=== PATIENT | male | born 1940 | race American Indian/Alaskan Native ===

== ENCOUNTER 2017-05-12 08:25 | Day surgery (SDC) | payer MEDICARE, MEDICAID ==
[~2017-05-12 08:25] MED LIST: Cataract Ophth Solution EYELF ONE; Lidocaine 4% 5 ML Amp EYELF ONE; Moxifloxacin 0.5% Ophth Soln 3 ML Bottle EYELF ONE; Sodium Chloride 0.9% 10 ML Syringe FLUSH PRN
[2017-05-12] MEDS ORDERED: Midazolam 1 MG/ML 2 ML SDV IV ONE (08:26)
[2017-05-12] MEDS ORDERED: Povidone-Iodine 5% Sterile Ophth Soln 30 ML Bottle EYELF ONE (11:18)
[2017-05-12] MEDS ORDERED: Lidocaine 1% 30 ML SDV ONE (11:18)
[2017-05-12] MEDS ORDERED: EPINEPHrine 1 MG/ML SDV ONE (11:18)
[2017-05-12] MEDS ORDERED: prednisoLONE Acetate 1% Ophth Susp 5 ML Bottle EYELF ONE (11:18)
[2017-05-12] MEDS ORDERED: Balanced Salt Solution Ophth Irrig 500 ML Bottle IOCULAR ONE (11:18)
[2017-05-12] MEDS ORDERED: Moxifloxacin 0.5% Ophth Soln 3 ML Bottle EYELF ONE (11:19)
[2017-05-12] MEDS ORDERED: Lidocaine 4% 5 ML Amp EYELF ONE (11:19)
--- NOTE | 2017-05-12 11:41 | PCM.OPNOTE ---
- General Post-Op/Procedure Note Date of Surgery/Procedure: 05/12/17 Operative Procedure(s): Cataract extraction with lens implant left eye Findings: As above Pre Op Diagnosis: Cataract left eye Post-Op Diagnosis: Same Anesthesia Technique: MAC Primary Surgeon: Fahad Mireles Anesthesia Provider: Sagar Pathology: None EBL in mLs: 0 Complications: None Condition: Good Free Text/Narrative:: PROCEDURE: After the risks and benefits of the procedure were explained informed consent was obtained from the patient and the patient was taken to the operating room. The patient was given topical Lidocaine 4% drops in the left eye. The patient was then prepped and draped in the sterile [facility] fashion. A wire lid speculum was placed in the left eye. A clear cornea temporal approach was used. A 7515 pilot station blade was used to make a paracentesis site around 5:00. Preservative-free Lidocaine 1% was injected intracamerally. Viscoelastic was placed in the anterior chamber. A 2.65 mm keratome blade was used to make a clear corneal incision around 3:00. A cystotome needle and Utrata forceps were used to perform continuous curvilinear capsulorhexis. Balanced Salt Solution was used to perform hydrodissection and hydrodelineation. The lens nucleus was removed using the divide and conquer phacoemulsification technique. Cumulative dissipated energy was 11.65. Remaining cortex was removed using irrigation- aspiration. Viscoelastic was placed in the capsular bag. PCBOO 23.5 diopter lens was then placed in the capsular bag. Remaining viscoelastic was removed using irrigation-aspiration. The lens was well centered in the capsular bag. The paracentesis and corneal incision were found to be water-tight. The patient was given topical Prednisolone and Vigamox drops. The speculum was removed and a shield was placed over the left eye. The patient was taken to recovery in stable condition. I certify that I was present for and performed the entire operative procedure. Fahad Mireles M.D.
== END 2017-05-12 12:30 | disposition home or self-care (01) ==
LOC: DL.SDS 08:25
PROVIDERS: ATTEND Ophthalmology
DX: H25.12 Age-related nuclear cataract, left eye (principal); K21.9 Gastro-esophageal reflux disease without esophagitis; N40.0 Benign prostatic hyperplasia without lower urinary tract symptoms; E78.5 Hyperlipidemia, unspecified; Z98.890 Other specified postprocedural states; Z87.891 Personal history of nicotine dependence; Z79.899 Other long term (current) drug therapy; Z79.82 Long term (current) use of aspirin; Z91.09 Other allergy status, other than to drugs and biological substances
CPT/HCPCS: 00142; 66984; A9270; J0171; J2250; J7050; V2632

== ENCOUNTER 2017-12-21 17:21 | Emergency (ER) | payer MEDICARE, MEDICAID ==
--- NOTE | 2017-12-21 18:13 | EDM.PDOC ---
ED HPI GENERAL MEDICAL PROBLEM - General Chief Complaint: Gastrointestinal Problem Stated Complaint: AMBULANCE Time Seen by Provider: 12/21/17 17:55 Source of Information: Reports: Family History Limitations: Reports: Other (The patient does not respond (all questions answered by )) - History of Present Illness INITIAL COMMENTS - FREE TEXT/NARRATIVE: This 77 yo male patient was brought to the ED by [facility] due to nausea, vomiting, diarrhea, hallucinations and generalized weakness. The patient's reports that the patient has a history of liver cancer. Over the past 3 days, the patient has not been eating or drinking well. Today, the patient started to have diarrhea. The patient is supposed to start chemo tomorrow in [place]. The patient is currently under the care of Dr. Godinez and Dr. Moser. The patient's reports that the patient has a history of liver cancer, hypertension, and high cholesterol. Onset Date: 12/18/17 Duration: Constant, Getting Worse Location: Reports: Generalized Quality: Reports: Other Severity: Severe Improves with: Reports: None Worsens with: Reports: None Associated Symptoms: Reports: Nausea/Vomiting, Weakness, Other (diarrhea ) - Related Data Allergies Allergy/AdvReac Type Severity Reaction Status Date / Time ENVIRONMENTAL Allergy Rash Uncoded 12/21/17 17:29 Home Meds: Home Meds Amitriptyline [Elavil] 25 mg PO BEDTIME 05/11/17 [History] Aspirin 1 tab PO DAILY 05/11/17 [History] Finasteride [Proscar] 5 mg PO DAILY 05/11/17 [History] Ibuprofen 800 mg PO TID 05/11/17 [History] Levothyroxine [Synthroid] 50 mcg PO DAILY 05/11/17 [History] Lovastatin 40 mg PO BEDTIME 05/11/17 [History] Metoclopramide [Reglan] 10 mg PO DAILY 05/11/17 [History] Nepafenac [Nevanac] 1 drop EYELF DAILY 05/11/17 [History] Ofloxacin [Ocuflox] 1 drop EYELF DAILY 05/11/17 [History] Omeprazole 40 mg PO DAILY 05/11/17 [History] Propranolol [Inderal] 40 mg PO DAILY 05/11/17 [History] Ranitidine [Zantac] 150 mg PO BID 05/11/17 [History] Tamsulosin [Flomax] 0.4 mg PO BEDTIME 05/11/17 [History] Verapamil [Calan SR] 240 mg PO DAILY 05/11/17 [History] prednisoLONE Acetate [Pred Forte 1% Ophth Susp] 1 drop EYELF DAILY 05/11/17 [ History] Past Medical History HEENT History: Reports: Cataract Other Cardiovascular History: DYSLIPIDEMIA Gastrointestinal History: Reports: GERD Other Gastrointestinal History: liver CA Genitourinary History: Reports: BPH Musculoskeletal History: Reports: Arthritis Other Neuro History: ESSENTIAL TREMOR Endocrine/Metabolic History: Reports: Hyperthyroidism Oncologic (Cancer) History: Reports: Liver Social & Family History - Tobacco Use Smoking Status *Q: Never Smoker Second Hand Smoke Exposure: No - Caffeine Use Caffeine Use: Reports: Coffee Caffeine Use Comment: 12OZ - Recreational Drug Use Recreational Drug Use: No ED ROS GENERAL - Review of Systems Review Of Systems: ROS reveals no pertinent complaints other than HPI. ED EXAM, GENERAL - Physical Exam Exam: See Below Exam Limited By: No Limitations General Appearance: Alert, Lethargic, Severe Distress, Thin Eye Exam: Bilateral Eye: EOMI, Normal Inspection, PERRL Ears: Normal External Exam, Normal Canal, Hearing Grossly Normal, Normal TMs Nose: Normal Inspection, Normal Mucosa, No Blood Throat/Mouth: Other (The patient's oral cavity is dry with black on his lips and tongue. ) Head: Atraumatic, Normocephalic Neck: Normal Inspection, Supple, Non-Tender, Full Range of Motion Respiratory/Chest: No Respiratory Distress, Lungs Clear, Normal Breath Sounds, No Accessory Muscle Use, Chest Non-Tender Cardiovascular: Normal Peripheral Pulses, Regular Rate, Rhythm, No Edema, No Gallop, No JVD, No Murmur, No Rub GI/Abdominal: Normal Bowel Sounds, Soft, Non-Tender, No Organomegaly, No Distention, No Abnormal Bruit, No Mass (Male) Exam: Deferred Rectal (Males) Exam: Deferred Back Exam: Normal Inspection, Full Range of Motion, NT Extremities: Normal Inspection, Normal Range of Motion, Non-Tender, Normal Capillary Refill, No Pedal Edema Neurological: Alert Psychiatric: Normal Affect, Normal Mood Skin Exam: Warm, Dry, Intact, Normal Color, No Rash Lymphatic: No Adenopathy Course - Vital Signs Last Recorded V/S: Last Vital Signs Temp 36.1 C 12/21/17 17:21 Pulse 64 12/21/17 17:21 Resp 18 12/21/17 17:21 BP 61/32 L 12/21/17 17:21 Pulse Ox 99 12/21/17 17:21 - Orders/Labs/Meds Orders: Active Orders 24 hr Category Date Time Status CULTURE BLOOD [BC] Stat Lab 12/21/17 17:53 Received CULTURE BLOOD [BC] Stat Lab 12/21/17 18:20 Results UA W/MICROSCOPIC [URIN] Stat Lab 12/21/17 17:40 Ordered Norepinephrine 4 MG in D5W @ 2 MCG/MIN(250ml) Med 12/21/17 19:15 Ordered Norepinephrine [Levophed] 4 mg Dextrose 5% in Water 246 ml IV TITRATE Sodium Chloride 0.9% [Normal Saline] 1,000 ml Med 12/21/17 18:18 Active IV .BOLUS Blood Culture x2 Reflex Set [OM.PC] Stat Oth 12/21/17 17:40 Ordered Medication Orders Sodium Chloride (Normal Saline) 1,000 mls @ 999 mls/hr IV .BOLUS ONE Stop: 12/21/17 19:18 Last Admin: 12/21/17 18:53 Dose: 999 mls/hr Norepinephrine Bitartrate 4 mg (/ Dextrose/Water) 250 mls @ 7.5 mls/hr IV TITRATE JUAN R; Protocol Labs: Laboratory Tests 12/21/17 12/21/17 12/21/17 Range/Units 17:53 17:53 17:53 WBC 9.1 (5.0-10.0) 10^3/uL RBC 3.28 L (4.6-6.2) 10^6/uL Hgb 9.8 L (14.0-18.0) g/dL Hct 31.0 L (40.0-54.0) % MCV 94.5 (80-100) fL MCH 29.9 (27.0-34.0) pg MCHC 31.6 L (33.0-35.0) g/dL Plt Count 213 (150-450) 10^3/uL Neut % (Auto) 78.3 H (42.2-75.2) % Lymph % (Auto) 13.4 L (20.5-50.1) % [place] % (Auto) 7.3 (2-8) % Eos % (Auto) 0.7 L (1.0-3.0) % Baso % (Auto) 0.3 (0.0-1.0) % Sodium 147 H (135-145) mmol/L Potassium 4.4 (3.6-5.0) mmol/L Chloride 115 H (101-111) mmol/L Carbon Dioxide 13.0 L (21.0-31.0) mmol/L Anion Gap 23.4 BUN 81 H (7-18) mg/dL Creatinine 3.8 H D (0.6-1.3) mg/dL Est Cr Clr Drug Dosing TNP Estimated GFR (MDRD) 16 BUN/Creatinine Ratio 21.31 Glucose 80 (74-105) mg/dL Lactic Acid (0.5-2.2) mmol/L Calcium 9.1 (8.4-10.2) mg/dl Magnesium 2.6 H (1.8-2.5) mg/dL Total Bilirubin 1.9 H (0.2-1.0) mg/dL AST 148 H (10-42) IU/L ALT 46 (10-60) IU/L Alkaline Phosphatase 493 H (42-121) IU/L Ammonia 43 H (11-35) umol/L Total Protein 6.1 L (6.7-8.2) g/dl Albumin 2.5 L (3.2-5.5) g/dl Globulin 3.6 Albumin/Globulin Ratio 0.69 Amylase 31 (28-100) U/L Lipase 51 (22-51) U/L /18/18 Range/Units 17:53 WBC (5.0-10.0) 10^3/uL RBC (4.6-6.2) 10^6/uL Hgb (14.0-18.0) g/dL Hct (40.0-54.0) % MCV (80-100) fL MCH (27.0-34.0) pg MCHC (33.0-35.0) g/dL Plt Count (150-450) 10^3/uL Neut % (Auto) (42.2-75.2) % Lymph % (Auto) (20.5-50.1) % [place] % (Auto) (2-8) % Eos % (Auto) (1.0-3.0) % Baso % (Auto) (0.0-1.0) % Sodium (135-145) mmol/L Potassium (3.6-5.0) mmol/L Chloride (101-111) mmol/L Carbon Dioxide (21.0-31.0) mmol/L Anion Gap BUN (7-18) mg/dL Creatinine (0.6-1.3) mg/dL Est Cr Clr Drug Dosing Estimated GFR (MDRD) BUN/Creatinine Ratio Glucose (74-105) mg/dL Lactic Acid 1.7 (0.5-2.2) mmol/L Calcium (8.4-10.2) mg/dl Magnesium (1.8-2.5) mg/dL Total Bilirubin (0.2-1.0) mg/dL AST (10-42) IU/L ALT (10-60) IU/L Alkaline Phosphatase (42-121) IU/L Ammonia (11-35) umol/L Total Protein (6.7-8.2) g/dl Albumin (3.2-5.5) g/dl Globulin Albumin/Globulin Ratio Amylase (28-100) U/L Lipase (22-51) U/L Meds: Medications Generic Name Dose Route Start Last Admin Trade Name Freq PRN Reason Stop Dose Admin Sodium Chloride 1,000 mls @ 999 mls/hr 12/21/17 18:18 12/21/17 18:53 Normal Saline IV 12/21/17 19:18 999 mls/hr .BOLUS ONE Administration Norepinephrine Bitartrate 4 mg 250 mls @ 7.5 mls/hr 12/21/17 19:15 / Dextrose/Water IV TITRATE JUAN R Protocol 2 MCG/MIN - Re-Assessments/Exams Free Text/Narrative Re-Assessment/Exam: 12/21/17 18:24 The patient's was asked about the patient's wishes if he should stop breathing or if his heart should stop. The 's response was to do whatever we can. According to the patient's , he does not have a DNR at this time. Departure - Departure Time of Disposition: 19:07 Disposition: DC/Tfer to [facility] 02 Condition: Serious Clinical Impression: Hallucinations Acute renal failure Qualifiers: Acute renal failure type: unspecified Qualified Code(s): N17.9 - Acute kidney failure, unspecified Liver cancer Qualifiers: Liver malignancy type: unspecified liver malignancy Qualified Code(s): C22.9 - Malignant neoplasm of liver, not specified as primary or secondary - Discharge Information Referrals: Luis E Moser MD [Primary Care Provider] - Forms: Interfacility Transfer EMTALA Care Plan Goals: Discussed the patient's history, lab, examination and treatments with Dr. Paz. Dr. Paz accepted the patient for admission to the ICU. The patient will be transported by [facility]. - My Orders Last 24 Hours: My Active Orders 12/21/17 17:40 UA W/MICROSCOPIC [URIN] Stat Blood Culture x2 Reflex Set [OM.PC] Stat 12/21/17 17:53 CULTURE BLOOD [BC] Stat 12/21/17 18:18 Sodium Chloride 0.9% [Normal Saline] 1,000 ml IV .BOLUS 12/21/17 18:20 CULTURE BLOOD [BC] Stat 12/21/17 19:15 Norepinephrine 4 MG in D5W @ 2 MCG/MIN(250ml) Norepinephrine [Levophed] 4 mg Dextrose 5% in Water 246 ml IV TITRATE - Assessment/Plan Last 24 Hours: My Active Orders 12/21/17 17:40 UA W/MICROSCOPIC [URIN] Stat Blood Culture x2 Reflex Set [OM.PC] Stat 12/21/17 17:53 CULTURE BLOOD [BC] Stat 12/21/17 18:18 Sodium Chloride 0.9% [Normal Saline] 1,000 ml IV .BOLUS 12/21/17 18:20 CULTURE BLOOD [BC] Stat 12/21/17 19:15 Norepinephrine 4 MG in D5W @ 2 MCG/MIN(250ml) Norepinephrine [Levophed] 4 mg Dextrose 5% in Water 246 ml IV TITRATE
[2017-12-21] MEDS ORDERED: Sodium Chloride 0.9% 1,000 ML IV ONE (18:18)
[2017-12-21 18:33] LABS: CHLORIDE,CL 115 mmol/L (101-111); SODIUM,NA 147 mmol/L (135-145)
[2017-12-21] MEDS ORDERED: Norepinephrine 4 MG in Dextrose 5% in Water 246 ML IV SCH ×2 (19:15)
== END 2017-12-21 19:41 ==
LOC: DL.ED 17:21
DX: R44.3 Hallucinations, unspecified (principal); N17.9 Acute kidney failure, unspecified; C22.9 Malignant neoplasm of liver, not specified as primary or secondary; I10 Essential (primary) hypertension; E78.00 Pure hypercholesterolemia, unspecified; E05.90 Thyrotoxicosis, unspecified without thyrotoxic crisis or storm; K21.9 Gastro-esophageal reflux disease without esophagitis; Z79.82 Long term (current) use of aspirin; Z79.899 Other long term (current) drug therapy
CPT/HCPCS: 36415; 80053; 82140; 82150; 83605; 83690; 83735; 85025; 87040; 96365; 99284; 99285; J7030; J7060